=== PATIENT | male | born 1955 | race Caucasian/White ===

== ENCOUNTER 2018-08-21 22:31 | Emergency (ER) | payer OTHER ==
[~2018-08-21] VITALS: Ht 170.2 cm; Wt 62.4 kg
[~2018-08-21 22:31] MED LIST: ASPI-535
[2018-08-21 22:36] VITALS: Ht 170.2 cm; Wt 62.4 kg
[2018-08-21] MEDS ORDERED: KETAMINE HCL (50 MG/ML) 1ml syringe IV STA (22:44)
[2018-08-21] MEDS ORDERED: KETOROLAC 30 MG INJ IV STA (22:44)
[2018-08-21] MEDS ORDERED: ONDANSETRON 4 MG INJ IV STA (22:44)
[2018-08-22] MEDS ORDERED: SOD CHLORIDE 0.9% 1,000 ML IV ONE
[2018-08-22] MEDS ORDERED: CEFTRIAXONE 1 GM/50 ML (PMX) 50 ML IVPB ONE (02:00)
[2018-08-22] MEDS ORDERED: ONDA8TAB14 PO ×2 (02:39→03:12)
[2018-08-22] MEDS ORDERED: TAMS-14 PO ×2 (02:39→03:12)
[2018-08-22] MEDS ORDERED: HYDR-4011 PO ×2 (02:39→03:12)
[2018-08-22] MEDS ORDERED: IBUP-1561 PO ×2 (02:39→02:54)
--- NOTE | 2018-08-22 02:47 | ERD ---
ER Documentation Chief Complaint Chief Complaint L SIDE FLANK PAIN X'S 2 HOURS HPI This is a 62-year-old male presents for relation of intermittent left flank pain, more so to the left lower area for the last few hours. He had a similar episode about 2 years ago, and was diagnosed with kidney stones. He has a history of tobacco use, he otherwise denies any fever, no chest pain or shortness of breath, no abdominal pain. Symptoms are intermittent. ROS All systems reviewed and are negative except as per history of present illness. Medications Home Meds Reported Medications Aspirin Ec (Aspir 81) 81 Mg Tablet. 08/28/09 Allergies Allergies: Coded Allergies: No Known Drug Allergies (Verified Allergy, Mild, 08/28/09) PMhx/Soc Medical and Surgical Hx: pt denies Surgical Hx History of Surgery: No Anesthesia Reaction: No Hx Neurological Disorder: No Hx Respiratory Disorders: No Hx Cardiac Disorders: Yes (HEART MURMUR) Hx Psychiatric Problems: No Hx Miscellaneous Medical Probl: No Hx Alcohol Use: Yes Hx Substance Use: No Hx Tobacco Use: Yes Smoking Status: Current every day smoker Physical Exam Vitals Vital Signs Date Temp Pulse Resp B/P (MAP) Pulse Ox O2 O2 Flow FiO2 Time Delivery Rate 08/21/18 97.4 79 18 146/77 96 22:36 (100) Physical Exam Const: Mild distress Head: Atraumatic Eyes: Normal Conjunctiva ENT: Normal External Ears, Nose and Mouth. Neck: Full range of motion. No meningismus. Resp: Clear to auscultation bilaterally Cardio: Regular rate and rhythm, no murmurs Abd: Soft, non tender, non distended, no rebound or guarding. Normal bowel sounds Skin: No petechiae or rashes Back: No midline or flank tenderness Ext: No cyanosis, or edema Neur: Awake and alert Psych: Normal Mood and Affect Result Diagram: 08/21/18 2322 08/21/18 2322 Results 24 hrs Laboratory Tests Test 08/21/18 00:25 08/21/18 23:22 Urine Color YELLOW Urine Clarity SLIGHTLY CLOUDY Urine pH 5.0 Urine Specific [place] 1.015 Urine Ketones NEGATIVE mg/dL Urine Nitrite NEGATIVE mg/dL Urine Bilirubin NEGATIVE mg/dL Urine Urobilinogen 1+ mg/dL Urine Leukocyte Esterase 3+ Tk/ul Urine Microscopic RBC 14 /HPF Urine Microscopic WBC 25 /HPF Urine Mucus FEW /HPF Urine Hemoglobin 2+ mg/dL Urine Glucose NEGATIVE mg/dL Urine Total Protein NEGATIVE mg/dl White Blood Count 11.5 10^3/ul Red Blood Count 4.40 10^6/ul Hemoglobin 13.2 g/dl Hematocrit 39.2 % Mean Corpuscular Volume 89.1 fl Mean Corpuscular Hemoglobin 30.0 pg Mean Corpuscular Hemoglobin Concent 33.7 g/dl Red Cell Distribution Width 14.1 % Platelet Count 300 10^3/UL Mean Platelet Volume 8.5 fl Immature Granulocytes % 0.300 % Neutrophils % 66.4 % Lymphocytes % 23.7 % Monocytes % 6.3 % Eosinophils % 2.6 % Basophils % 0.7 % Nucleated Red Blood Cells % 0.0 /100WBC Immature Granulocytes # 0.040 10^3/ul Neutrophils # 7.6 10^3/ul Lymphocytes # 2.7 10^3/ul Monocytes # 0.7 10^3/ul Eosinophils # 0.3 10^3/ul Basophils # 0.1 10^3/ul Nucleated Red Blood Cells # 0.0 10^3/ul Sodium Level 142 mmol/L Potassium Level 3.8 mmol/L Chloride Level 108 mmol/L Carbon Dioxide Level 24 mmol/L Anion Gap 10 Blood Urea Nitrogen 13 mg/dl Creatinine 0.93 mg/dl Est Glomerular Filtrat Rate mL/min > 60 mL/min Glucose Level 110 mg/dl Calcium Level 9.2 mg/dl Total Bilirubin 0.3 mg/dl Direct Bilirubin 0.00 mg/dl Indirect Bilirubin 0.3 mg/dl Aspartate Amino Transf (AST/SGOT) 37 IU/L Alanine Aminotransferase (ALT/SGPT) 31 IU/L Alkaline Phosphatase 61 IU/L Troponin I < 0.012 ng/ml Total Protein 6.9 g/dl Albumin 4.0 g/dl Globulin 2.90 g/dl Albumin/Globulin Ratio 1.37 Lipase 62 U/L Current Medications Medications Dose Sig/Negar Start Time Status Last (Trade) Ordered Route PRN Stop Time Admin Dose Reason Admin Ondansetron 4 mg ONCE STAT 08/21/18 DC 08/21/18 HCl (Zofran IV 22:44 08/21/18 23:07 Inj) 22:45 Ketorolac 30 mg ONCE STAT 08/21/18 DC 08/21/18 Tromethamine IV 22:44 08/21/18 23:07 (Toradol) 22:45 Ketamine 19 mg ONCE STAT 08/21/18 DC 08/21/18 HCl IV 22:44 08/21/18 23:09 (Ketamine 22:45 HCl) Sodium 1,000 ml @ Q1H ONCE 08/22/18 DC 08/22/18 Chloride 1,000 mls/hr IV 00:00 08/22/18 00:04 00:59 Ceftriaxone 50 ml @ ONCE ONCE 08/22/18 08/22/18 Sodium 100 mls/hr IVPB 02:00 08/22/18 02:10 02:29 [place] [id number] Radiology Main Line: [phone] DIAGNOSTIC IMAGING REPORT Patient: HARMEET BLAND : 1955 Age: 62 Sex: M MR #: [id number] DOS: 08/21/18 2244 Ordering MD: MELINA ARAMBULA MD Location: E/R Room/Bed: PROCEDURE: CT ABDOMEN AND PELVIS WITHOUT CONTRAST CLINICAL INDICATION: 62 years of age, male . Abdominal pain. TECHNIQUE: CT of the abdomen and pelvis was performed without intravenous contrast. Oral contrast was not administered prior to the examination. Coronal and sagittal reformatted images were obtained from the axial source images. Images were reviewed on a high-resolution PACS workstation. DICOM images are available. Dose information: Based on a 32 cm phantom, the estimated radiation dose (CTDIvol mGy) for each series in this exam is 6. The estimated cumulative dose (DLP mGy-cm) is 316. One or more of the following dose reduction techniques were used: - Automated exposure control. - Adjustment of the mA and/or kV according to patient size. - Use of iterative reconstruction technique. COMPARISON: None available. FINDINGS: In the absence of intravenous contrast, the study constitutes a limited assessment of the solid organs, bowel and vessels. LUNG BASES: Normal noncontrast appearance. ABDOMEN/PELVIS: Liver: Normal noncontrast appearance. Gallbladder: Normal noncontrast appearance. Bile ducts: No intrahepatic or extrahepatic biliary duct dilatation. Spleen: Normal noncontrast appearance. Pancreas: Normal noncontrast appearance. Adrenal glands: Normal noncontrast appearance. Kidneys and ureters: There is a 0.4 cm obstructing calculus at the left UVJ that protrudes into the bladder lumen and results in mild left hydronephrosis and hydroureter (3/143). There are at least 3 additional nonobstructing calculi in the left kidney and there is a punctate nonobstructing calculus in the right kidney. Both kidneys are normal size. Negative for right hydronephrosis. Aorta and IVC: Mild atherosclerotic calcification of aorta and iliac vessels. Negative for abdominal aortic aneurysm. Lymph nodes: Normal noncontrast appearance. Gastrointestinal tract: Stomach is moderately distended with semisolid material. Remaining bowel loops are decompressed and appear normal. Appendix: Normal (601/56).. Bladder: Normal noncontrast appearance. Pelvic Organs: Prostate gland and seminal vesicles are unremarkable for age. Peritoneal cavity: No free fluid or free intraperitoneal air. Abdominal wall: Normal noncontrast appearance. MUSCULOSKELETAL: Bones: Osteopenia and degenerative changes in the spine. No suspicious bone lesions. IMPRESSION: 1. 0.4 cm obstructing calculus at the left UVJ protrudes into the bladder lumen with mild left hydronephrosis and hydroureter. 2. Multiple bilateral nonobstructing renal calculi as described. 3. Stomach is moderately distended with semisolid material that may be from a recent meal. Recommend clinical correlation for signs of gastroparesis. If this is a clinical concern, consider nuclear medicine gastric emptying study. 4. Please note that in the absence of intravenous contrast the study does not evaluate the patency of the vasculature. RPTAT: HCTS Physician Erasto Date Time Electronically viewed and signed by Physician Erasto on 08/22/2018 01:55 CS/ CC: MELINA ARAMBULA MD [id number] Procedures/MDM This is a 62-year-old male who presents for evaluation of left intermittent flank pain. Concern for most likely kidney stones, CT abdomen pelvis showed a 4 mm stone at the UVJ. The patient was given low-dose ketamine, Toradol for his pain and experienced significant improvement. There was some evidence of leukocytosis, thus I recommended that he be treated empirically with ceftriaxone, for possible UTI. Patient had no evidence of sepsis or severe sepsis, as his pain has negatively improved, he felt comfortable going home. His chest x-ray was notable for a possible right-sided mass, he had no cardiopulmonary symptoms, given his tobacco use, there is concern for possible malignancy. I informed the patient and spouse about this, and recommend they follow-up with a CT of the chest as an outpatient as soon as possible. Patient discharged with pain medication with Rush, Flomax, and Zofran, at discharge she was in no distress. EKG: Rate/Rhythm: Normal Sinus Rhythm QRS, ST, T-waves: No changes consistent w/ acute ischemia Impression: No evidence of ischemia or arrhythmia Departure Diagnosis: Primary Impression: Flank pain Additional Impression: Kidney stone Condition: Stable MELINA ARAMBULA MD Aug 22, 2018 02:38
[2018-08-22 02:52] VITALS: BP 118/58; PULSE 72; RESP 16
[2018-08-22] MEDS ORDERED: ACET325T33 PO (03:09)
[2018-08-22] MEDS ORDERED: IBUP-1542 PO (03:12)
[2018-08-22] MEDS ORDERED: CEPH-443 PO (03:17)
== END 2018-08-22 03:24 | disposition home or self-care (01) ==
LOC: E/R 22:31
DX: N20.0 Calculus of kidney (principal); F17.210 Nicotine dependence, cigarettes, uncomplicated; Z79.82 Long term (current) use of aspirin
CPT/HCPCS: 36415; 71045; 74176; 80053; 81001; 83690; 84484; 85025; 93005; 96361; 96365; 96375; J0696; J1885; J2405; J7030; Z7502